=== PATIENT | male | born 1965 | race Caucasian/White ===

== ENCOUNTER 2017-06-11 14:53 | Emergency (ER) | payer BC ==
--- NOTE | 2017-06-11 16:28 | ED ---
General Adult HPI - General Chief complaint: Psychiatric Symptoms Stated complaint: Poss medication reaction Time Seen by Provider: 06/11/17 15:36 Source: patient, RN notes reviewed Mode of arrival: ambulatory Limitations: no limitations - History of Present Illness Initial comments: chief complaint and history of present illness this is a 52-year-old male here with his sponsor. The patient's been alcohol free for 14 years. 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 Lately the patient reports been feeling depressed. He had flu type symptoms last week. currently on medications including a Z-Mohinder for bronchitis. Patient reports his mood has been flat states he describes as bipolar-like. He also states that when he was in rehab program years ago possibility of bipolar disorder was discussed. Patient is not suicidal. he states he has not been able to sleep for 2 days. - Related Data Home Medications Medication Instructions Recorded Confirmed Artificial Tears-Hypromellose 1 drops BOTH EYES TID PRN 06/11/17 06/11/17 [Artificial Tear Drops] Azithromycin [Zithromax Z-pack] See Taper PO DAILY 06/11/17 06/11/17 Ibuprofen [Motrin] 200 - 400 mg PO Q6H PRN 06/11/17 06/11/17 Montelukast [Singulair] 10 mg PO DAILY 06/11/17 06/11/17 Multivitamins, Thera [Multivitamin 1 tab PO DAILY 06/11/17 06/11/17 (formulary)] Zinc 50 mg PO DAILY 06/11/17 06/11/17 guaiFENesin-Coden 100-10MG/5ML 5 - 10 ml PO QID PRN 06/11/17 06/11/17 [Robitussin AC] Allergies Allergy/AdvReac Type Severity Reaction Status Date / Time Penicillins Allergy Unknown Verified 06/11/17 15:58 Childhood Review of Systems ROS Statement: Those systems with pertinent positive or pertinent negative responses have been documented in the HPI. review of systems. Patient is being treated with azithromycin for general bronchitis. He is denying chest pain shortness breath GI/ problems. Psychologically the patient reports she feels manic is ML's sleep for several days and has flat affect in between. All systems reviewed. Past medical problems bipolar-like disorder as well as alcoholism, free of alcohol 14 years. He is here with his sponsor. Patient denies any surgeries. Family history father grandfather both alcoholics. Patient has ALLERGIES to penicillin. Denies smoking. Alcoholic, Sober for 14 years. ROS Other: All systems not noted in ROS Statement are negative. Past Medical History Additional Past Medical History / Comment(s): depression History of Any Multi-Drug Resistant Organisms: None Reported Past Surgical History: No Surgical Hx Reported Past Psychological History: Depression Smoking Status: Never smoker Past Alcohol Use History: None Reported General Exam - General Exam Comments Initial Comments: General: The patient is awake and alert, states he has a flat feeling. Denies suicidal thoughts. Not able to sleep for 2 days. Vital signs temperature 98.9 pulse 79 respiratory rate 16 pulse ox 98% room air blood pressure 135/86 Eye: Pupils are equal, round and reactive to light, extra-ocular movements are intact ; there is normal conjunctiva bilaterally. No signs of icterus. Ears, nose, mouth and throat: There are moist mucous membranes and no oral lesions. Neck: The neck is supple, there is no tenderness , no anterior cervical lymphadenopathy, thyroid not enlarged. Cardiovascular: There is a regular rate and rhythm. No murmur, rub or gallop is appreciated. Respiratory: Lungs are clear to auscultation, respirations are non-labored, breath sounds are equal. No wheezes, stridor, rales, or rhonchi. Gastrointestinal: Soft, non-distended, non-tender abdomen without masses or organomegaly noted. There is no rebound or guarding present. No CVA tenderness. Bowel sounds are unremarkable. Back: There is no tenderness to palpation in the midline. There is no obvious deformity. No rashes noted. Musculoskeletal: Normal ROM, no tenderness, There is no pedal edema. There is no calf tenderness or swelling. Sensation intact. Pulses equal bilaterally 2+. Neurological: denies weakness. No evidence or complaints of any focal or lateralizing findings. Skin: Skin is warm and dry and no rashes or lesions are noted. Psychiatric: Cooperative, flat affect, states he has no energy or desire. Yet he can't sleep for the past several days. Past history of possible bipolar disorder. Limitations: no limitations Course Vital Signs 06/11/17 15:10 Temperature 98.9 F Pulse Rate 79 Respiratory 16 Rate Blood Pressure 135/86 O2 Sat by Pulse 98 Oximetry Medical Decision Making - Medical Decision Making Patient's breath alcohol was 0. urine triage was positive for opiates and methamphetamine. The patient was evaluated by psychiatric nurse, she spoke with the psychiatrist. The patient will be advised to follow up with outpatient [facility]. - Lab Data Lab Results 06/11/17 Range/Units 15:56 Urine Opiates Screen Detected H (NotDetected) Ur Oxycodone Screen Not Detected (NotDetected) Urine Methadone Screen Not Detected (NotDetected) Ur Propoxyphene Screen Not Detected (NotDetected) Ur Barbiturates Screen Not Detected (NotDetected) U Tricyclic Antidepress Not Detected (NotDetected) Ur Phencyclidine Scrn Not Detected (NotDetected) Ur Amphetamines Screen Not Detected (NotDetected) U Methamphetamines Scrn Detected H (NotDetected) U Benzodiazepines Scrn Not Detected (NotDetected) Urine Cocaine Screen Not Detected (NotDetected) U Marijuana (THC) Screen Not Detected (NotDetected) Disposition Clinical Impression: Depression Disposition: HOME SELF-CARE Condition: Fair Instructions: Depression (ED) Additional Instructions: Follow-up with [facility]. Referrals: Aaron Alicea MD [Primary Care Provider] - 1-2 days Time of Disposition: 18:19
[2017-06-11 16:31] LABS: Amphetamine Screen,Urine Not Detected (NotDetected); Barbiturate Screen,Urine Not Detected (NotDetected); Benzodiazepines Screen,Urine Not Detected (NotDetected); Cocaine Screen,Urine Not Detected (NotDetected); Methadone Screen, Urine Not Detected (NotDetected); Opiate Screen,Urine Detected (NotDetected); Oxycodone Screen, Urine Not Detected (NotDetected); Phencyclidine Screen,Urine Not Detected (NotDetected); Tricyclic Antidepressant,Urine Not Detected (NotDetected); Urn Cannabinoid Scrn Not Detected (NotDetected)
[2017-06-11 18:38] VITALS: BP 137/83; PULSE 74; RESP 20; TEMP 97.9
== END 2017-06-11 18:55 | disposition home or self-care (01) ==
LOC: EC 14:53
DX: F32.9 Major depressive disorder, single episode, unspecified (principal); Z79.899 Other long term (current) drug therapy; Z88.0 Allergy status to penicillin
CPT/HCPCS: 80306; 82075; 99284

== ENCOUNTER → 2019-06-22 | Outpatient (CLI) | payer BC ==
[2019-06-22 12:17] LABS: Albumin 4.4 g/dL (3.80-4.90); Bilirubin, Conjugated 0.3 mg/dL (0.20-0.40); Bilirubin,Unconjugated 0.5 mg/dL; Chol/HDL Ratio 3.98; Globulin 2.2 g/dL (1.6-3.3); LDL Cholesterol,Calculated 117.2 mg/dL (0.0-131.0); Total Bilirubin 0.8 mg/dL (0.2-1.2); Total Protein 6.6 g/dL (6.2-8.2); VLDL Calculation 13.8 mg/dL (5.00-40.00)
== END | disposition home or self-care (01) ==
LOC: LABWHC1 07:09
PROVIDERS: ATTEND Internal Medicine
DX: R10.11 Right upper quadrant pain (principal); R11.0 Nausea; R93.2 Abnormal findings on diagnostic imaging of liver and biliary tract
CPT/HCPCS: 36415; 80061; 80076; 82150; 82947; 83690

== ENCOUNTER → 2019-06-26 | Outpatient (CLI) | payer BC ==
--- NOTE | 2019-06-26 08:53 | NM ---
EXAMINATION TYPE: NM hepatobiliary w EF DATE OF EXAM: 06/26/2019 COMPARISON: Prior HIDA scan December 10, 2013 HISTORY: Right upper quadrant pain per order. Rare symptoms of heartburn and reflux with additional s ymptoms of nausea, gassiness, and bloatedness per patient. TECHNIQUE: After the intravenous administration of 5.2 mCi Tc 99m Mebrofenin hepatobiliary scintigrap hy is performed. Immediate images post injection. FINDINGS: There is satisfactory initial accumulation of tracer by the liver. The gallbladder is visualized wit hin 10 minutes. The small bowel activity is noted within 35 minutes. At one hour 8 ounces of oral e nsure plus is given to mimic CCK and gallbladder ejection fraction is calculated at 29 %, which is di minished from the normal range. Therefore there is no scintigraphic evidence of cystic or common megan e duct obstruction to suggest acute cholecystitis . IMPRESSION: Ejection fraction calculated at 29% on current study is diminished from the normal range consistent with underlying gallbladder dyskinesia.
== END | disposition home or self-care (01) ==
LOC: RADNMMAIN 06:40
PROVIDERS: ATTEND Internal Medicine
DX: R10.11 Right upper quadrant pain (principal); R11.10 Vomiting, unspecified; Z88.0 Allergy status to penicillin
CPT/HCPCS: 78226; A9537

== ENCOUNTER 2021-02-05 13:02 | Emergency (ER) | payer BC, OTHER ==
[2021-02-05 13:16] VITALS: BP 135/77; PULSE 74; RESP 18; TEMP 98.6
--- NOTE | 2021-02-05 14:07 | ED ---
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 He notes that he was wearing gloves woke in the car they don't need to his finger to gloves. He notes that there was no blood from his finger. He notes that he immediately washed it cleaned it and then used his hands has to help disinfect the area. He notes that his work wanted to come in to get tested. He denied any other issues or complaints at this time. He was otherwise a well- appearing 55-year-old male in no apparent distress or pain. He denied any chest pain first breath headache nausea vomiting diarrhea constipation fever fatigue chills. - Related Data Home Medications Medication Instructions Recorded Confirmed Artificial Tears-Hypromellose 1 drops BOTH EYES TID PRN 06/11/17 06/11/17 [Artificial Tear Drops] Azithromycin [Zithromax Z-pack] See Taper PO DAILY 06/11/17 06/11/17 Ibuprofen [Motrin] 200 - 400 mg PO Q6H PRN 06/11/17 06/11/17 Montelukast [Singulair] 10 mg PO DAILY 06/11/17 06/11/17 Multivitamins, Thera [Multivitamin 1 tab PO DAILY 06/11/17 06/11/17 (formulary)] Zinc 50 mg PO DAILY 06/11/17 06/11/17 guaiFENesin-Coden 100-10MG/5ML 5 - 10 ml PO QID PRN 06/11/17 06/11/17 [Robitussin AC] Allergies Allergy/AdvReac Type Severity Reaction Status Date / Time Penicillins Allergy Unknown Verified 02/05/21 13:16 Childhood Review of Systems ROS Statement: Those systems with pertinent positive or pertinent negative responses have been documented in the HPI. ROS Other: All systems not noted in ROS Statement are negative. Past Medical History Additional Past Medical History / Comment(s): depression History of Any Multi-Drug Resistant Organisms: None Reported Past Surgical History: Cholecystectomy Past Psychological History: Depression Smoking Status: Never smoker Past Alcohol Use History: None Reported Past Drug Use History: None Reported General Exam Limitations: no limitations General appearance: alert, in no apparent distress Head exam: Present: atraumatic, normocephalic, normal inspection Eye exam: Present: normal appearance, PERRL, EOMI. Absent: scleral icterus, conjunctival injection, periorbital swelling Neck exam: Present: normal inspection Respiratory exam: Present: normal lung sounds bilaterally. Absent: respiratory distress, wheezes, rales, rhonchi, stridor Cardiovascular Exam: Present: regular rate, normal rhythm, normal heart sounds. Absent: systolic murmur, diastolic murmur, rubs, gallop, clicks Extremities exam: Present: normal inspection, full ROM, normal capillary refill. Absent: tenderness, pedal edema, joint swelling, calf tenderness Neurological exam: Present: alert, oriented X3 Psychiatric exam: Present: normal affect, normal mood Skin exam: Present: warm, dry, intact, normal color, other (One small needle stick to the PIP of the right middle finger lateral aspect, nonbleeding.). Absent: rash Course Vital Signs 02/05/21 13:12 Temperature 98.6 F Pulse Rate 74 Respiratory 18 Rate Blood Pressure 135/77 O2 Sat by Pulse 100 Oximetry Medical Decision Making - Medical Decision Making 55-year-old male with a needle stick injury to the right middle finger. Labs drawn per [facility]. Case discussed with Dr. Concepcion, patient can be discharged home with follow-up to primary care. Disposition Clinical Impression: Needle stick injury of finger of right hand Disposition: HOME SELF-CARE Condition: Stable Instructions (If sedation given, give patient instructions): Needle Stick Injuries (ED) Additional Instructions: Please return to the Emergency Department if symptoms worsen or any other concerns. Follow-up with primary care 1-2 days. Continue to practice good hand hygiene by washing it and keeping it clean and dry. Is patient prescribed a controlled substance at d/c from ED?: No Referrals: Aaron Alicea MD [Primary Care Provider] - 1-2 days Time of Disposition: 13:56
== END 2021-02-05 14:22 | disposition home or self-care (01) ==
LOC: EC 13:02
DX: S61.232A Puncture wound without foreign body of right middle finger without damage to nail, initial encounter (principal); Z88.0 Allergy status to penicillin; W46.0XXA Contact with hypodermic needle, initial encounter; Y99.0 Civilian activity done for income or pay; Y92.239 Unspecified place in hospital as the place of occurrence of the external cause; Y93.E8 Activity, other personal hygiene; Y92.9 Unspecified place or not applicable; S61.231A Puncture wound without foreign body of left index finger without damage to nail, initial encounter
CPT/HCPCS: 99282

== ENCOUNTER → 2023-11-28 | Outpatient (CLI) | payer OTHER ==
--- NOTE | 2023-11-28 22:16 | XR ---
EXAMINATION TYPE: XR chest 2V DATE OF EXAM: 11/28/2023 COMPARISON: None HISTORY: 58-year-old male positive TB test R76.11 NONSPECIFIC REACTION TO SKIN TEST W/O ACTIV TECHNIQUE: Frontal and lateral views FINDINGS: The cardiomediastinal silhouette, aorta, and pulmonary vasculature are within normal limits. Lungs an d pleural spaces are clear. IMPRESSION: No acute cardiopulmonary process.
== END | disposition home or self-care (01) ==
LOC: RADXRMAIN 15:57
PROVIDERS: ATTEND Emergency Medicine
DX: R76.11 Nonspecific reaction to tuberculin skin test without active tuberculosis (principal)
CPT/HCPCS: 71046

== ENCOUNTER → 2024-03-13 | Outpatient (CLI) | payer BC ==
--- NOTE | 2024-03-13 13:33 | CT ---
EXAMINATION TYPE: CT soft tissue neck wo con CT DLP: 365 mGycm, Automated exposure control for dose reduction was used. DATE OF EXAM: 03/13/2024 1:26 PM COMPARISON: None. CLINICAL INDICATION:Male, 58 years old with history of R22.1 LEFT MASS/SWELLING OF NECK; PHH, enlarge d lymph nodes both sides TECHNIQUE: Standard CT of the neck without administration of intravenous contrast. This limits evalua tion. Axial sections with coronal and sagittal reformats were obtained. FINDINGS: Brain: Visualized portions are grossly unremarkable. Orbits: Unremarkable Sinuses: Grossly unremarkable. Suprahyoid Neck: The oropharynx, oral cavity, parapharyngeal and retropharyngeal spaces are clear and symmetric. The nasopharynx is unremarkable. Infrahyoid Neck: The larynx, hypopharynx, and supraglottic area are clear and symmetric. Parotid Glands: Unremarkable. Submandibular Glands: Unremarkable. Musculoskeletal: No acute osseous pathology. Lymph nodes: No pathologically enlarged cervical lymph nodes identified. No lymph nodes greater than 1 cm short axis. Vascular structures: Mild bilateral carotid bulb calcifications. Thoracic Inlet/airway: Airway is patent. The lung apices are clear. Soft tissues/Thyroid: Thyroid and remainder of the soft tissues are unremarkable. Other: none. IMPRESSION: Limited exam due to lack of intravenous contrast. No pathologically enlarged cervical lymph nodes identified within limitations of a noncontrast exam. [facility], , 03/13/2024 1:31 PM
== END | disposition home or self-care (01) ==
LOC: RADCTMAIN 12:33
PROVIDERS: ATTEND Family Medicine
DX: R22.1 Localized swelling, mass and lump, neck (principal)
CPT/HCPCS: 70490